=== PATIENT | female | born 1995 | race Two or more races ===

== ENCOUNTER 2024-05-03 14:51 | Emergency (ER) | payer MEDICAID ==
[~2024-05-03] VITALS: Ht 170.2 cm; Wt 110.0 kg
[2024-05-03 15:00] VITALS: TEMP 98.5
[2024-05-03 15:16] LABS: GLUCOMETER DEV NAME(LOC) ER.7; GLUCOSE,POINT OF CARE 370 MG/DL (70-110)
[2024-05-03 16:36] LABS: APPEARANCE,URINE CLEAR (CLEAR); BILIRUBIN,URINE NEGATIVE (NEGATIVE); COLOR,URINE COLORLESS (YELLOW); GLUCOSE, URINE (UA) >=1000 mg/dL (NEGATIVE); KETONES,URINE NEGATIVE (NEGATIVE); LEUKOCYTE ESTERASE ,URINE NEGATIVE (NEGATIVE); NITRATE,URINE NEGATIVE (NEGATIVE); OCCULT BLOOD,URINE SMALL (NEGATIVE); PH,URINE 6.5 (5.0-8.0); PROTEIN,URINE NEGATIVE (NEGATIVE); SPECIFIC GRAVITIY, URINE 1.035 (1.003-1.030); UROBILINOGEN,URINE <=1.0 mg/dL (<=1.0)
[2024-05-03 16:41] LABS: BASOPHILS % (AUTO) 0.8 % (0.0-2.0); EOSINOPHILS % (AUTO) 1.7 % (1.0-6.0); HEMATOCRIT 38.7 % (36-46); HEMOGLOBIN 12.7 g/dL (12.0-16.0); LYMPHOCYTES # (AUTO) 3.9 K/uL (1.0-4.8); LYMPHOCYTES % (AUTO) 39.6 % (22.0-44.0); MEAN CORPUSCULAR HEMOGLOBIN 25.1 pg (26.0-34.0); MEAN CORPUSCULAR HGB CONC 32.8 G/dL (31.0-37.0); MEAN CORPUSCULAR VOLUME 76 fL (80-100); MONOCYTES # (AUTO) 0.7 K/uL (0.1-1.0); MONOCYTES % (AUTO) 7.2 % (2.0-9.0); NEUTROPHILS % (AUTO) 50.7 % (40.0-70.0); PLATELET COUNT (AUTO) 278 K/uL (150-450); RED BLOOD CELL COUNT(AUTO) 5.07 MIL/uL (4.00-5.20); RED CELL DISTRIBUTION WIDTH 15.3 % (11.5-14.5); WHITE BLOOD COUNT (AUTO) 9.8 K/uL (4.5-11.0)
[2024-05-03 16:49] LABS: CHLORIDE 99 mmol/L (98-107); POTASSIUM 4.1 mmol/L (3.5-5.1); SODIUM SERUM 134 mmol/L (136-145)
[2024-05-03 16:56] LABS: ANION GAP 8 mmol/L (8-16); CALCIUM, TOTAL 9.1 mg/dL (8.8-10.5); CARBON DIOXIDE 27 mmol/L (22-29); CREATININE 0.98 mg/dL (0.60-1.30); GLOMERULAR FILTR. RATE CALC > 60 mL/min (>60); GLUCOSE,RANDOM 359 mg/dL (70-110); UREA NITROGEN, BLOOD 13 mg/dL (7-18)
[2024-05-03 16:56] LABS: WBC,URINE 0-2 /HPF (0-5)
[2024-05-03 16:57] LABS: BACTERIA,URINE Few /HPF (None Seen)
[2024-05-03 17:20] LABS: HCG,QUAL URINE NEGATIVE (NEGATIVE)
[2024-05-03] MEDS: SODIUM CHLORIDE 0.9% 1,000 ML IV ONE (17:57)
[2024-05-03 18:21] LABS: HCG,QUANTITATIVE 1 mIU/mL (0-6); LIPASE 51 U/L (16-77)
[2024-05-03] MEDS: INSULIN REGULAR, HUMAN 100 UNITS/ML IVP ONE ×2 (19:51→20:51)
[2024-05-03] MEDS: ACETAMINOPHEN 500 MG TABLET PO ONE (20:52)
[2024-05-03 21:02] VITALS: BP 124/67; PULSE 69; RESP 17; O2SAT 99
[2024-05-03] MEDS ORDERED: METF-1211 PO (21:38)
[2024-05-03] MEDS ORDERED: POLY17PO62 PO (21:50)
[2024-05-04 06:21] LABS: GLUCOMETER DEV NAME(LOC) ERT.5; GLUCOSE,POINT OF CARE 351 MG/DL (70-110)
== END 2024-05-03 22:23 | disposition home or self-care (01) ==
LOC: EMS 14:51
DX: K42.9 Umbilical hernia without obstruction or gangrene (principal); R73.9 Hyperglycemia, unspecified
CPT/HCPCS: 99284; 96374; 96361; 80048; 81001; 82962; 83690; 84702; 84703; 85025; 36415; 74022; 96376; J1815; J7030; 96375

== ENCOUNTER 2024-05-31 19:02 | Emergency (ER) | payer MEDICAID ==
[~2024-05-31] VITALS: Ht 165.1 cm; Wt 110.0 kg
[~2024-05-31 19:02] MED LIST: METF-1211 PO; POLY17PO62 PO
[2024-05-31 19:06] VITALS: TEMP 98
[2024-05-31 19:59] VITALS: BP 119/54; PULSE 78; RESP 17; O2SAT 98
[2024-05-31 20:20] LABS: APPEARANCE,URINE CLEAR (CLEAR); BILIRUBIN,URINE NEGATIVE (NEGATIVE); COLOR,URINE LIGHT YELLOW (YELLOW); GLUCOSE, URINE (UA) TRACE mg/dL (NEGATIVE); KETONES,URINE NEGATIVE (NEGATIVE); LEUKOCYTE ESTERASE ,URINE NEGATIVE (NEGATIVE); NITRATE,URINE NEGATIVE (NEGATIVE); OCCULT BLOOD,URINE NEGATIVE (NEGATIVE); PROTEIN,URINE TRACE mg/dL (NEGATIVE); SPECIFIC GRAVITIY, URINE 1.022 (1.003-1.030)
[2024-05-31 20:34] LABS: HCG,QUAL URINE NEGATIVE (NEGATIVE)
[2024-05-31] MEDS ORDERED: NAPH15DR75 OU (20:34)
[2024-05-31] MEDS ORDERED: ACET-66 PO (20:36)
== END 2024-05-31 21:07 | disposition home or self-care (01) ==
LOC: EMS 19:02
DX: H53.8 Other visual disturbances (principal); E11.9 Type 2 diabetes mellitus without complications; R51.9 Headache, unspecified
CPT/HCPCS: 81003; 82962; 84703; 99283

== ENCOUNTER 2024-07-18 16:13 | Emergency (ER) | payer MEDICAID ==
[~2024-07-18] VITALS: Ht 165.1 cm; Wt 90.9 kg
[~2024-07-18 16:13] MED LIST changes: +ACET-66 PO; +NAPH15DR75 OU
[2024-07-18 17:41] LABS: BASOPHILS % (AUTO) 0.6 % (0.0-2.0); EOSINOPHILS % (AUTO) 2.5 % (1.0-6.0); HEMATOCRIT 38.5 % (36-46); HEMOGLOBIN 12.7 g/dL (12.0-16.0); LYMPHOCYTES # (AUTO) 3.4 K/uL (1.0-4.8); MEAN CORPUSCULAR HEMOGLOBIN 25.9 pg (26.0-34.0); MEAN CORPUSCULAR HGB CONC 33.1 G/dL (31.0-37.0); MEAN CORPUSCULAR VOLUME 78 fL (80-100); MONOCYTES # (AUTO) 0.7 K/uL (0.1-1.0); MONOCYTES % (AUTO) 7.7 % (2.0-9.0); NEUTROPHILS # (AUTO) 4.4 K/uL (1.8-7.7); NEUTROPHILS % (AUTO) 50.2 % (40.0-70.0); PLATELET COUNT (AUTO) 345 K/uL (150-450); RED BLOOD CELL COUNT(AUTO) 4.93 MIL/uL (4.00-5.20); RED CELL DISTRIBUTION WIDTH 15.1 % (11.5-14.5); WHITE BLOOD COUNT (AUTO) 8.8 K/uL (4.5-11.0)
[2024-07-18 17:54] LABS: ANION GAP 3 mmol/L (8-16); CALCIUM, TOTAL 8.7 mg/dL (8.8-10.5); CARBON DIOXIDE 29 mmol/L (22-29); CHLORIDE 103 mmol/L (98-107); CREATININE 0.72 mg/dL (0.60-1.30); GLOMERULAR FILTR. RATE CALC > 60 mL/min (>60); GLUCOSE,RANDOM 129 mg/dL (70-110); POTASSIUM 3.9 mmol/L (3.5-5.1); SODIUM SERUM 135 mmol/L (136-145); UREA NITROGEN, BLOOD 6 mg/dL (7-18)
[2024-07-18 18:07] LABS: ALANINE AMINOTRANSFERASE 28 U/L (12-78); ALBUMIN 3.2 g/dL (3.4-5.0); ALKALINE PHOSPHATASE 70 U/L (46-116); ASPARTATE AMINOTRANSFERASE 21 U/L (15-37); BILIRUBIN,TOTAL 0.2 mg/dL (0.1-1.0); HCG,QUANTITATIVE < 1 mIU/mL (0-6); LIPASE 34 U/L (16-77); TOTAL PROTEIN, SERUM 7.5 g/dL (6.4-8.2)
[2024-07-18 18:10] LABS: APPEARANCE,URINE CLEAR (CLEAR); BILIRUBIN,URINE NEGATIVE (NEGATIVE); COLOR,URINE YELLOW (YELLOW); GLUCOSE, URINE (UA) NEGATIVE (NEGATIVE); KETONES,URINE NEGATIVE (NEGATIVE); LEUKOCYTE ESTERASE ,URINE NEGATIVE (NEGATIVE); NITRATE,URINE NEGATIVE (NEGATIVE); OCCULT BLOOD,URINE SMALL (NEGATIVE); PROTEIN,URINE TRACE mg/dL (NEGATIVE); SPECIFIC GRAVITIY, URINE 1.031 (1.003-1.030); UROBILINOGEN,URINE <=1.0 mg/dL (<=1.0)
[2024-07-18 18:52] LABS: BACTERIA,URINE Rare /HPF (None Seen); SQUAMOUS EPITHELIAL CELL,UR Moderate /LPF (None Seen); WBC,URINE 0-2 /HPF (0-5)
[2024-07-18] MEDS: KETOROLAC TROMETHAMINE 30 MG/ML VIAL IM ONE (20:32)
[2024-07-18] MEDS: ACETAMINOPHEN 500 MG TABLET PO ONE (20:32)
[2024-07-18 21:50] VITALS: BP 119/68; PULSE 74; RESP 18; TEMP 97.3; O2SAT 99
== END 2024-07-18 21:56 | disposition home or self-care (01) ==
LOC: EMS 16:13
DX: R10.30 Lower abdominal pain, unspecified (principal); R51.9 Headache, unspecified; E11.9 Type 2 diabetes mellitus without complications
CPT/HCPCS: 99283; 80048; 80076; 81001; 83690; 84702; 85025; 36415; 96372; J1885

== ENCOUNTER 2024-08-13 20:37 | Emergency (ER) | payer MEDICAID ==
[~2024-08-13] VITALS: Ht 162.6 cm; Wt 100.0 kg
[~2024-08-13 20:37] MED LIST changes: -ACET-66 PO; -NAPH15DR75 OU; -POLY17PO62 PO
[2024-08-13 20:50] VITALS: TEMP 98.1
[2024-08-13 21:15] LABS: BASOPHILS % (AUTO) 0.5 % (0.0-2.0); HEMATOCRIT 38.3 % (36-46); HEMOGLOBIN 12.4 g/dL (12.0-16.0); LYMPHOCYTES # (AUTO) 2.2 K/uL (1.0-4.8); LYMPHOCYTES % (AUTO) 27.5 % (22.0-44.0); MEAN CORPUSCULAR HEMOGLOBIN 24.9 pg (26.0-34.0); MEAN CORPUSCULAR HGB CONC 32.4 G/dL (31.0-37.0); MEAN CORPUSCULAR VOLUME 77 fL (80-100); MONOCYTES # (AUTO) 0.6 K/uL (0.1-1.0); MONOCYTES % (AUTO) 7.4 % (2.0-9.0); NEUTROPHILS # (AUTO) 5.1 K/uL (1.8-7.7); NEUTROPHILS % (AUTO) 62.6 % (40.0-70.0); PLATELET COUNT (AUTO) 356 K/uL (150-450); RED BLOOD CELL COUNT(AUTO) 4.99 MIL/uL (4.00-5.20); RED CELL DISTRIBUTION WIDTH 15.3 % (11.5-14.5); WHITE BLOOD COUNT (AUTO) 8.1 K/uL (4.5-11.0)
[2024-08-13 21:32] LABS: TROPONIN I-HIGH SENSITIVITY 9 ng/L (<51)
[2024-08-13 21:46] LABS: ANION GAP 1 mmol/L (8-16); CALCIUM, TOTAL 8.5 mg/dL (8.8-10.5); CARBON DIOXIDE 31 mmol/L (22-29); CHLORIDE 99 mmol/L (98-107); CREATININE 0.83 mg/dL (0.60-1.30); GLOMERULAR FILTR. RATE CALC > 60 mL/min (>60); GLUCOSE,RANDOM 121 mg/dL (70-110); POTASSIUM 3.7 mmol/L (3.5-5.1); SODIUM SERUM 131 mmol/L (136-145); UREA NITROGEN, BLOOD 8 mg/dL (7-18)
[2024-08-13 21:52] LABS: ALANINE AMINOTRANSFERASE 42 U/L (12-78); ALBUMIN 3.4 g/dL (3.4-5.0); ALKALINE PHOSPHATASE 89 U/L (46-116); ASPARTATE AMINOTRANSFERASE 30 U/L (15-37); BILIRUBIN,TOTAL 0.3 mg/dL (0.1-1.0); LIPASE 28 U/L (16-77); TOTAL PROTEIN, SERUM 7.8 g/dL (6.4-8.2)
[2024-08-13] MEDS: ACETAMINOPHEN 500 MG TABLET PO ONE (22:17)
[2024-08-13] MEDS: METOCLOPRAMIDE HCL 10 MG TABLET PO ONE (22:17)
[2024-08-13] MEDS: IBUPROFEN 400 MG TABLET PO ONE (22:17)
[2024-08-14] MEDS ORDERED: SODIUM CHLORIDE 0.9% 100 ML ONE (00:23)
[2024-08-14] MEDS ORDERED: IOHEXOL 350 MG/ML 100 ML VIAL ONE (00:24)
[2024-08-14 01:13] VITALS: BP 123/76; PULSE 95; RESP 18; O2SAT 98
[2024-08-14] MEDS: KETOROLAC TROMETHAMINE 30 MG/ML VIAL IM ONE (02:42)
== END 2024-08-14 02:46 | disposition home or self-care (01) ==
LOC: EMS 20:37
DX: R10.33 Periumbilical pain (principal); R10.13 Epigastric pain; R07.9 Chest pain, unspecified; R51.9 Headache, unspecified; R11.2 Nausea with vomiting, unspecified; E11.9 Type 2 diabetes mellitus without complications
CPT/HCPCS: 99285; 71045; 80048; 80076; 83690; 84484; 84703; 85025; 85379; 93005; 74177; 96372; 36415; Q9967; J1885; J7050

== ENCOUNTER 2024-09-09 01:28 | Emergency (ER) | payer MEDICAID ==
[~2024-09-09] VITALS: Ht 157.5 cm; Wt 111.8 kg
[2024-09-09 01:32] VITALS: TEMP 98
[2024-09-09 02:26] LABS: APPEARANCE,URINE CLEAR (CLEAR); BILIRUBIN,URINE NEGATIVE (NEGATIVE); COLOR,URINE COLORLESS (YELLOW); GLUCOSE, URINE (UA) NEGATIVE (NEGATIVE); KETONES,URINE NEGATIVE (NEGATIVE); LEUKOCYTE ESTERASE ,URINE LARGE (NEGATIVE); NITRATE,URINE NEGATIVE (NEGATIVE); OCCULT BLOOD,URINE NEGATIVE (NEGATIVE); PROTEIN,URINE NEGATIVE (NEGATIVE); UROBILINOGEN,URINE <=1.0 mg/dL (<=1.0)
[2024-09-09 02:41] LABS: BACTERIA,URINE Rare /HPF (None Seen); RBC,URINE None Seen /HPF (0-2); SQUAMOUS EPITHELIAL CELL,UR Rare /LPF (None Seen)
[2024-09-09] MEDS ORDERED: CEPH-558 PO (05:52)
[2024-09-09] MEDS ORDERED: FLUC150T61 PO (05:53)
[2024-09-09 06:00] VITALS: BP 142/77; PULSE 82; RESP 18; O2SAT 100
== END 2024-09-09 06:16 | disposition home or self-care (01) ==
LOC: EMS 01:28
DX: B37.31 Acute candidiasis of vulva and vagina (principal); N39.0 Urinary tract infection, site not specified; E11.9 Type 2 diabetes mellitus without complications
CPT/HCPCS: 81001; 82962; 87086; 99283